=== PATIENT | male | born 1940 | race Caucasian/White ===

== ENCOUNTER 2018-02-04 08:52 | Day surgery (SDC) | payer MEDICARE ==
[~2018-02-04] VITALS: Ht 193 cm; Wt 96.9 kg
[~2018-02-04 08:52] MED LIST: CLON1TAB12 PO; FURO40TA5 PO; GLIP10TA9 PO; HUM10VIA6 SQ; LACT1CAP78 PO; MAGN250T2 PO; METO-391 PO; PYRI50TA9 PO; SACU1TAB PO; SODIUM CHLORIDE 0.9% 1000ML 1,000 ML IV ONE; UBID100C45 PO; WARF-67 PO
[2018-02-04 11:00] VITALS: BP 111/69
[2018-02-04] MEDS ORDERED: CYAN5000 SL (12:20)
[2018-02-04] MEDS ORDERED: PROPOFOL 10 MG/ML 20ML VIAL IV ONE (13:46)
[2018-02-04 14:17] VITALS: BP 98/54
[2018-02-04 14:22] VITALS: BP 83/45
[2018-02-04 14:27] VITALS: BP 123/73
[2018-02-04 14:32] VITALS: BP 93/84
[2018-02-04 14:37] VITALS: BP 112/80
== END 2018-02-04 14:53 | disposition home or self-care (01) ==
LOC: DAH 08:52 → ENDO 08:52
PROVIDERS: ATTEND Internal Medicine
DX: D12.2 Benign neoplasm of ascending colon (principal); D12.3 Benign neoplasm of transverse colon; K52.9 Noninfective gastroenteritis and colitis, unspecified; K29.50 Unspecified chronic gastritis without bleeding; I11.0 Hypertensive heart disease with heart failure; I50.9 Heart failure, unspecified; F32.9 Major depressive disorder, single episode, unspecified; F41.9 Anxiety disorder, unspecified; E11.9 Type 2 diabetes mellitus without complications; Z79.01 Long term (current) use of anticoagulants; Z79.899 Other long term (current) drug therapy; Z98.890 Other specified postprocedural states; K21.9 Gastro-esophageal reflux disease without esophagitis; I25.10 Atherosclerotic heart disease of native coronary artery without angina pectoris; Z86.010 Personal history of colon polyps; M19.90 Unspecified osteoarthritis, unspecified site; Z95.0 Presence of cardiac pacemaker; Z79.84 Long term (current) use of oral hypoglycemic drugs; Z79.4 Long term (current) use of insulin; Z80.0 Family history of malignant neoplasm of digestive organs; Z88.8 Allergy status to other drugs, medicaments and biological substances; Z82.49 Family history of ischemic heart disease and other diseases of the circulatory system
CPT/HCPCS: 43239; 45380; 45385; 82948 ×2; 88305; 88312; 88342; 93005; A4606; J2704; J7030

== ENCOUNTER → 2019-04-15 | Outpatient (CLI) | payer MEDICARE ==
[~2019-04-15] MED LIST changes: +CYAN5000 SL; +PYRI50TA13 PO; -PYRI50TA9 PO; -SODIUM CHLORIDE 0.9% 1000ML 1,000 ML IV ONE
== END | disposition home or self-care (01) ==
LOC: RAH 12:35
PROVIDERS: ATTEND Internal Medicine
DX: J44.9 Chronic obstructive pulmonary disease, unspecified (principal); S20.219A Contusion of unspecified front wall of thorax, initial encounter; X58.XXXA Exposure to other specified factors, initial encounter; Y93.89 Activity, other specified; Y92.89 Other specified places as the place of occurrence of the external cause; Y99.8 Other external cause status; Z95.0 Presence of cardiac pacemaker
CPT/HCPCS: 71046

== ENCOUNTER → 2020-06-23 | Outpatient (CLI) | payer MEDICARE | END | disposition home or self-care (01) | LOC: RAH 11:34 | PROVIDERS: ATTEND Internal Medicine | DX: M47.812 Spondylosis without myelopathy or radiculopathy, cervical region (principal); M48.02 Spinal stenosis, cervical region; M25.78 Osteophyte, vertebrae; M89.38 Hypertrophy of bone, other site; R20.2 Paresthesia of skin | CPT/HCPCS: 72050 ==

== ENCOUNTER → 2021-02-03 | Outpatient (CLI) | payer MEDICARE ==
[~2021-02-03] MED LIST changes: +PYRI-12 PO; -PYRI50TA13 PO
== END | disposition home or self-care (01) ==
LOC: RAH 10:00
PROVIDERS: ATTEND Internal Medicine
DX: N50.811 Right testicular pain (principal); N50.3 Cyst of epididymis
CPT/HCPCS: 76870

== ENCOUNTER → 2023-08-23 | Outpatient (CLI) | payer MEDICARE ==
[~2023-08-23] MED LIST changes: -MAGN250T2 PO; +MAGN250T35 PO
== END | disposition home or self-care (01) ==
LOC: RAH 10:07
PROVIDERS: ATTEND Physician Assistant
DX: R05.3 Chronic cough (principal); I70.0 Atherosclerosis of aorta; M47.814 Spondylosis without myelopathy or radiculopathy, thoracic region; Z95.0 Presence of cardiac pacemaker
CPT/HCPCS: 71047

== ENCOUNTER 2025-04-28 08:15 | Inpatient (IN) | payer OTHER, MEDICARE ==
[~2025-04-28] VITALS: Ht 188 cm; Wt 90.3 kg
[~2025-04-28 08:15] MED LIST changes: +AMIO100T4 PO; +APIX5TAB PO; +CLON0.5T4 PO; -CLON1TAB12 PO; -CYAN5000 SL; +FAMO20TA8 PO; -FURO40TA5 PO; -GLIP10TA9 PO; -HUM10VIA6 SQ; +INSU100V51 SQ; -LACT1CAP78 PO; -MAGN250T35 PO; -METO-391 PO; +METO-409 PO; +PREG75 PO; -SACU1TAB PO; +TRAM50TA4 PO; -UBID100C45 PO; -WARF-67 PO
[2025-04-28] MEDS ORDERED: FURO20TA4 PO (08:40)
[2025-04-28] MEDS ORDERED: ATOR10 PO (08:40)
[2025-04-28] MEDS ORDERED: GLIP10TA16 PO (08:40)
[2025-04-28] MEDS ORDERED: LOSA25TA41 PO (08:40)
[2025-04-28 08:55] LABS: NUCLEATED RED BLOOD CELLS 0.0 % (0.0-0.19); PLATELET COUNT (AUTO) 212.0 K/uL (130-400); RED BLOOD CELL COUNT(AUTO) 4.56 MIL/uL (4.50-6.20); RED CELL DISTRIBUTION WIDTH 17.0 % (11.0-15.5); WHITE BLOOD COUNT (AUTO) 14.7 K/uL (4.8-10.8)
[2025-04-28] MEDS ORDERED: PoTASSium chl 10% ELIXIR 20MEQ 20 MEQ/15 ML UDCUP PO PRN (09:00)
[2025-04-28 09:05] LABS: CREATININE 1.3 mg/dL (0.5-1.3); GLOMERULAR FILTR. RATE CALC 55.0 mL/min (>90); GLUCOSE,RANDOM 300.0 mg/dL (70-105); SODIUM SERUM 142.0 mmol/L (136-145); UREA NITROGEN, BLOOD 40.0 mg/dL (7-18)
[2025-04-28] MEDS ORDERED: DOFETILIDE 250 MCG CAPSULE PO ONE (10:00)
--- NOTE | 2025-04-28 10:05 | HMCIMG ---
EXAM: CR Chest, 1 View. CLINICAL HISTORY: afib COMPARISON: 03/28/2016. Prior report not available at time of examination. FINDINGS: LUNGS: The lungs show no infiltrate or other acute finding. PLEURAL SPACES: No evidence of pleural effusion or pneumothorax. MEDIASTINUM: Cardiomegaly. BONES: No aggressive appearing osseous lesion seen. MISCELLANEOUS: Left-sided AICD. IMPRESSION: 1. No acute cardiopulmonary findings. 2. Cardiomegaly. 3. Left-sided AICD. /Andrews
--- NOTE | 2025-04-28 10:38 | EKG ---
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
--- NOTE | 2025-04-28 11:15 | NUR ---
ATTEMPTED TO CALL FOR REPORT; SPOKE WITH LISE; PENDING CALL BACK
--- NOTE | 2025-04-28 12:03 | NUR ---
REPORT GIVEN AT THIS TIME; S/W LISE
[2025-04-28 12:49] VITALS: BP 105/74; PULSE 91; RESP 18; TEMP 97.9
[2025-04-28 16:13] VITALS: BP 106/58; PULSE 101; RESP 18; TEMP 98.2
[2025-04-28 17:15] VITALS: O2SAT 96
[2025-04-28 19:24] VITALS: BP 104/67; PULSE 91; RESP 16; TEMP 97.9
[2025-04-28 20:00] VITALS: O2SAT 97
--- NOTE | 2025-04-28 20:17 | EKG ---
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
--- NOTE | 2025-04-28 20:19 | NUR ---
Allergies reviewed Pt states current allergy band list inaccurate. Allergies reviewed one by one: pt states only allergic to codeine, niacin. Other meds listed were meds he was just no longer taking but never had any reactions. Allergy band updated. Allergies in system updated.
[2025-04-28 20:49] LABS: APPEARANCE,URINE CLEAR (CLEAR); GLUCOSE, URINE (UA) >=1000 mg/dL (NEGATIVE); LEUKOCYTE ESTERASE ,URINE NEGATIVE Leu/uL (NEGATIVE); NITRATE,URINE NEGATIVE (NEGATIVE); OCCULT BLOOD,URINE NEGATIVE (NEGATIVE)
[2025-04-28 20:50] LABS: ADD UA MICROSCOPIC YES
[2025-04-28 20:54] LABS: WBC CLUMP RARE /HPF (0-1)
[2025-04-28] MEDS: DOFETILIDE 250 MCG CAPSULE PO ONE (21:57)
[2025-04-28 23:32] VITALS: BP 109/71; PULSE 99; RESP 16; TEMP 97.4
[2025-04-29] VITALS (7 sets, daily range): BP systolic 97–117; BP diastolic 59–70; PULSE 75–98; RESP 16–20; TEMP 97.5–98.8; O2SAT 97
[2025-04-29 04:05] LABS: IMMATURE GRANULOCYTE ABSOLUTE 0.03 K/uL (0-1); NUCLEATED RED BLOOD CELLS 0.0 % (0.0-0.19); PLATELET COUNT (AUTO) 165 K/uL (130-400); RED BLOOD CELL COUNT(AUTO) 4.12 MIL/uL (4.50-6.20); RED CELL DISTRIBUTION WIDTH 16.7 % (11.0-15.5); WHITE BLOOD COUNT (AUTO) 9.5 K/uL (4.8-10.8)
[2025-04-29 04:14] LABS: CREATININE 1.1 mg/dL (0.5-1.3); GLOMERULAR FILTR. RATE CALC 67.0 mL/min (>90); GLUCOSE,RANDOM 96.0 mg/dL (70-105); SODIUM SERUM 143.0 mmol/L (136-145); UREA NITROGEN, BLOOD 32.0 mg/dL (7-18)
--- NOTE | 2025-04-29 04:35 | EKG ---
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
[2025-04-29] MEDS: PoTASSium chloRIDE 20MEQ ER 20 MEQ ERTAB PO PRN (05:45)
--- NOTE | 2025-04-29 09:07 | NUR ---
DCP: HOME Sw met with this gentleman, who is with 100% service connection. Pt is on [place] home based program and gets a nurse visit monthly. PCP is Jacqui Alford and he uses [facility] in [place] for rx needs. Pt lives in mobile home with ramp, with Maia Jarrett. P states he remains independent of self care, he helps with cooking, cleaning and laundry. pt able to drive self as needed. Pt has a cane, walker, w/c, grab bars in bathroom room. No HH or HS. Pt denies need for SNF, he just completed 3 month of PT with HH. P plans to [place] home at [place] Addendum: 04/29/25 at 0914 by ALTAGRACIA MCGEE Amended: Links added.
[2025-04-29] MEDS: DOFETILIDE 250 MCG CAPSULE PO ONE ×2 (09:29→20:07)
--- NOTE | 2025-04-29 09:33 | PN ---
This is an 84-year-old male with a history of nonischemic cardiomyopathy, status post dual-chamber pacemaker insertion with biventricular ICD upgrade 01/12/2015 with subsequent generator change out 04/29/2024, hypertension, hyperlipidemia, type 2 diabetes mellitus with peripheral neuropathy, essential tremor, IBS, esophageal erosion and persistent atrial fibrillation. He was direct admitted 04/28/2025 for an oral load of dofetilide followed by cardioversion. He received one dose of dofetilide yesterday evening at 10:00 p.m.. His EKG this morning shows atrial fibrillation with intermittent biventricular pacing at 97 beats per minute. His QT interval is 380 milliseconds with a corrected QT of 483 milliseconds. He is currently in atrial fibrillation with intermittent biventricular pacing in the s. His most recent echocardiogram 12/10/2024 demonstrates an ejection fraction of 25 to 30% with mild to moderate aortic regurgitation and moderate mitral valve regurgitation. Chest x-ray 04/28/2025 this is negative for acute cardiopulmonary findings. White blood count 9.5 down from 40.7 yesterday, hemoglobin 11.9, hematocrit 36.6, platelets 165, creatinine 1.1, potassium 3.6, magnesium 2.0, urinalysis negative for urinary tract infection. This morning he reports nausea this morning which he attributes to his history of IBS and esophageal erosion with stricture. He takes esomeprazole and famotidine at home. The esomeprazole has been held on admission. He states that he has not slept well over the last three days in his anxious to return home. On exam, he appears anxious but is in no acute distress, tremor noted, irregularly irregular rhythm, lungs are clear to auscultation bilaterally, no lower extremity edema is noted. Assessment: 1. Persistent atrial fibrillation. 2. Dilated cardiomyopathy. 3. Presence of biventricular ICD. 4. Esophageal erosion with stricture. Assessment: 1. He was admitted 04/28/2025 for an oral load of dofetilide. Unfortunately he only received one dose of dofetilide 250 mcg yesterday. His corrected QT yesterday evening was 483 milliseconds. He will receive another dose of dofetilide 250 mcg this morning. Plan for repeat EKG 2 hours after this dose. 2. We will plan for cardioversion in the a.m. after he receives his 4th dose of dofetilide. Anticipate discharge home tomorrow afternoon after EKG. 3. Make NPO after midnight. 4. Start pantoprazole 40 mg once daily. Vitals/Labs Vital Signs Date Time Temp Pulse Resp B/P (MAP) Pulse Ox O2 Delivery O2 Flow Rate FiO2 04/29/25 08:00 98.6 78 20 113/70 97 Room Air 04/28/25 20:00 0 21 Laboratory Tests 04/29/25 03:57 GALINA OTERO R PAC Apr 29, 2025 09:33
--- NOTE | 2025-04-29 12:18 | EKG ---
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
[2025-04-29] MEDS: PHENAZOpyridine HCL 200 MG TAB 200 MG TABLET PO PRN (13:19)
--- NOTE | 2025-04-30 02:49 | EKG ---
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
[2025-04-30 03:25] VITALS: BP 101/65; PULSE 93; RESP 16; TEMP 97.7
[2025-04-30 04:09] LABS: IMMATURE GRANULOCYTE ABSOLUTE 0.05 K/uL (0-1); NUCLEATED RED BLOOD CELLS 0.0 % (0.0-0.19); PLATELET COUNT (AUTO) 200 K/uL (130-400); RED BLOOD CELL COUNT(AUTO) 4.70 MIL/uL (4.50-6.20); RED CELL DISTRIBUTION WIDTH 16.4 % (11.0-15.5); WHITE BLOOD COUNT (AUTO) 10.1 K/uL (4.8-10.8)
[2025-04-30 04:21] LABS: ASPARTATE AMINOTRANSFERASE 34.0 U/L (10-37); CREATININE 1.1 mg/dL (0.5-1.3); GLOMERULAR FILTR. RATE CALC 67.0 mL/min (>90); GLUCOSE,RANDOM 148.0 mg/dL (70-105); SODIUM SERUM 143.0 mmol/L (136-145); TOTAL PROTEIN, SERUM 6.3 g/dL (6.0-8.3); UREA NITROGEN, BLOOD 24.0 mg/dL (7-18)
[2025-04-30 07:43] VITALS: BP 123/66; PULSE 73; RESP 20; TEMP 98.7
--- NOTE | 2025-04-30 08:51 | PN ---
This is an 84-year-old male with a history of nonischemic cardiomyopathy, status post dual-chamber pacemaker insertion with biventricular ICD upgrade 01/12/2015 with subsequent generator change out 04/29/2024, hypertension, hyperlipidemia, type 2 diabetes mellitus with peripheral neuropathy, essential tremor, IBS, esophageal erosion and persistent atrial fibrillation. He was direct admitted 04/28/2025 for an oral load of dofetilide followed by cardioversion. He has received three doses of dofetilide 250 mcg. EKG overnight after his 3rd dose shows an underlying rhythm of atrial tachycardia versus atypical atrial flutter with biventricular pacing, ventricular rate 91 beats per minute. His QT interval is 420 milliseconds with a corrected QT of 517 milliseconds. He is currently in atrial flutter with ventricular rates in the 90s. White blood count 10.1, hemoglobin 13.8, hematocrit 42.3, platelets 200, creatinine 1.1, potassium 3.9. This morning he reports feeling somewhat anxious as he has not been sleeping well. On exam, he is in no acute distress, tremor noted, irregularly irregular rhythm, lungs are clear to auscultation bilaterally, no lower extremity edema is noted. Assessment: 1. Persistent atrial fibrillation. 2. Dilated cardiomyopathy. 3. Presence of biventricular ICD. 4. Esophageal erosion with stricture. Assessment: 1. He was admitted 04/28/2025 for an oral load of dofetilide. After his 3rd dose of dofetilide yesterday evening, his corrected QT interval lengthened significantly at 517 milliseconds. We will hold his morning dose of dofetilide. 2. He will undergo cardioversion this morning. Plan to resume dofetilide at reduced dose of 125 mcg this evening. 3. Anticipate discharge home after cardioversion versus one morning evening for observation. Vitals/Labs Vital Signs Date Time Temp Pulse Resp B/P (MAP) Pulse Ox O2 Delivery O2 Flow Rate FiO2 04/30/25 07:43 98.8 73 20 123/66 98 Room Air 04/29/25 20:05 0 21 Laboratory Tests 04/30/25 03:50 GALINA OTERO Apr 30, 2025 08:51
--- NOTE | 2025-04-30 10:20 | NUR ---
DR. SWANN HERE AND PT WAS SEDATED PER COMPENSATION INTERN WITH PROPOFOL AND PT WAS CARDIOVERTED AND PT HAD EKG DONE AFTER CARDIOVERSION. PT WOKE UP AND OFFERING N/C.
[2025-04-30] MEDS ORDERED: LIDOCAINE PF 100MG/5ML (2%) SYRINGE 5ML ONE (10:21)
[2025-04-30] MEDS ORDERED: DOFE250C4 PO (11:25)
[2025-04-30 12:00] VITALS: BP 123/75; PULSE 67; RESP 20; TEMP 98.6
[2025-04-30 16:00] VITALS: BP 120/75; PULSE 65; RESP 20; TEMP 98.7
--- NOTE | 2025-04-30 16:05 | NUR ---
PT WAS DISCHARGED AFTER INSTRUCTIONS WERE GIVEN CONCERNING APPOINTMENTS AND EKG TO BE DONE ON SATURDAY.
--- NOTE | 2025-05-01 03:00 | EKG ---
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
== END 2025-04-30 16:05 | disposition home or self-care (01) | DRG 309 ==
LOC: EDH 08:15 → DIRECT 08:16 → UNDOADMIN 09:10 → DIRECT 09:10 → 2AH 12:20
PROVIDERS: ADMIT Internal Medicine Cardiovascular Disease; ATTEND Internal Medicine Cardiovascular Disease
PROC: 5A2204Z Restoration of Cardiac Rhythm, Single (ICD-10-PCS; principal; 2025-04-30)
DX: I48.19 Other persistent atrial fibrillation (principal); K22.10 Ulcer of esophagus without bleeding; I42.0 Dilated cardiomyopathy; K22.2 Esophageal obstruction
CPT/HCPCS: 36415; 71045; 80048; 80053; 81001; 82948; 83735; 84436; 84443; 85025; 85027; 87040; 87086; 93005; G0378; J1815; J2003; J2704; J3490

== ENCOUNTER 2025-06-10 07:06 | Day surgery (SDC) | payer MEDICARE ==
[~2025-06-10] VITALS: Ht 193 cm; Wt 93.4 kg
[2025-06-10] VITALS (11 sets, daily range): BP systolic 87–119; BP diastolic 50–81; PULSE 60–94; RESP 13–16; TEMP 97.5–97.9
[~2025-06-10 07:06] MED LIST changes: -AMIO100T4 PO; +ATOR10 PO; +DOFE250C4 PO; -FAMO20TA8 PO; +FAMO40TA7 PO; +FINA5TAB41 PO; +FURO20TA4 PO; +GABA-529 PO; +GLIP10TA16 PO; +INSLAN SQ; -INSU100V51 SQ; +LOSA25TA41 PO; +METF-444 PO; +OMEP40CA21 PO; -TRAM50TA4 PO
[2025-06-10] MEDS: 0.9%NACL 1000ML 1,000 ML IV ONE (08:29)
== END 2025-06-10 11:40 | disposition home or self-care (01) ==
LOC: DAH 07:06 → ENDO 07:06
PROVIDERS: ATTEND Internal Medicine Gastroenterology
DX: K22.2 Esophageal obstruction (principal); K22.89 Other specified disease of esophagus; K29.70 Gastritis, unspecified, without bleeding; R13.10 Dysphagia, unspecified; K21.9 Gastro-esophageal reflux disease without esophagitis; E11.9 Type 2 diabetes mellitus without complications; I50.9 Heart failure, unspecified; I11.0 Hypertensive heart disease with heart failure; I25.10 Atherosclerotic heart disease of native coronary artery without angina pectoris; K74.02 Hepatic fibrosis, advanced fibrosis; K44.9 Diaphragmatic hernia without obstruction or gangrene; F41.9 Anxiety disorder, unspecified; F32.A Depression, unspecified; K58.9 Irritable bowel syndrome, unspecified; Z95.0 Presence of cardiac pacemaker; Z98.890 Other specified postprocedural states; Z98.49 Cataract extraction status, unspecified eye; Z88.6 Allergy status to analgesic agent; Z88.8 Allergy status to other drugs, medicaments and biological substances; Z79.84 Long term (current) use of oral hypoglycemic drugs; Z79.899 Other long term (current) drug therapy
CPT/HCPCS: 82948 ×2; 43239; 43248; J7030 ×2; J2704 ×2; A4620; A4215 ×2; A4223; A7002; A4222; A4221; A4663; A4606; J3490